=== PATIENT | female | born 1945 | race Caucasian/White ===

== ENCOUNTER → 2016-08-07 | Outpatient (CLI) | payer OTHER ==
[~2016-08-07] MED LIST: AMARYL4 MG PO; ANAPROX DS550 MG PO; ASPIRIN325 MG PO; CYCLOBENZAPRINE10 MG PO; HYDROCODONE BIT1 T11 PO; HYZAAR 25 MG-101 TAB PO; JANUMET 1000 MG1 TAB PO; LANOXIN0.25 MG PO; LEVEMIR100 U/ML SC; LIPITOR10 MG PO; NAPROSYN500 MG PO; NOVOLIN R100 U/ML SC; OYSTER CAL 500500 MG PO; TOPROL XL25 MG PO; VICODIN1 TAB PO; VITAMIN D50000 IU PO; ZOLOFT50 MG PO
== END | disposition home or self-care (01) ==
LOC: CARD 15:38
DX: R06.09 Other forms of dyspnea (principal)

== ENCOUNTER → 2016-09-01 | Outpatient (CLI) | payer OTHER | END | disposition home or self-care (01) | LOC: MAMMO 11:16 | DX: Z12.31 Encounter for screening mammogram for malignant neoplasm of breast (principal) ==

== ENCOUNTER → 2016-10-17 | Outpatient (CLI) | payer OTHER | END | disposition home or self-care (01) | LOC: RAD 12:45 | DX: M19.032 Primary osteoarthritis, left wrist (principal); M54.41 Lumbago with sciatica, right side; M47.896 Other spondylosis, lumbar region; M41.86 Other forms of scoliosis, lumbar region; Z91.81 History of falling ==

== ENCOUNTER 2018-02-14 19:30 | Emergency (ER) | payer OTHER ==
[~2018-02-14] VITALS: Ht 170.1 cm; Wt 102.1 kg
[2018-02-14 19:31] VITALS: BP 149/62
== END 2018-02-14 22:50 | disposition home or self-care (01) ==
LOC: ED 19:30
DX: S20.211A Contusion of right front wall of thorax, initial encounter (principal); S50.01XA Contusion of right elbow, initial encounter; Z79.899 Other long term (current) drug therapy; Z79.82 Long term (current) use of aspirin; W01.198A Fall on same level from slipping, tripping and stumbling with subsequent striking against other object, initial encounter; Y93.89 Activity, other specified; Y92.89 Other specified places as the place of occurrence of the external cause; Y99.8 Other external cause status

== ENCOUNTER → 2018-07-15 | Outpatient (CLI) | payer OTHER | END | disposition home or self-care (01) | LOC: RESCLI 01:30 | DX: I11.0 Hypertensive heart disease with heart failure (principal); I50.9 Heart failure, unspecified; E78.5 Hyperlipidemia, unspecified; E11.40 Type 2 diabetes mellitus with diabetic neuropathy, unspecified; F32.9 Major depressive disorder, single episode, unspecified; E78.1 Pure hyperglyceridemia; M54.31 Sciatica, right side; F41.9 Anxiety disorder, unspecified; F51.01 Primary insomnia; E11.42 Type 2 diabetes mellitus with diabetic polyneuropathy; E55.9 Vitamin D deficiency, unspecified; M19.90 Unspecified osteoarthritis, unspecified site; Z79.899 Other long term (current) drug therapy; Z88.8 Allergy status to other drugs, medicaments and biological substances; Z79.4 Long term (current) use of insulin; Z86.2 Personal history of diseases of the blood and blood-forming organs and certain disorders involving the immune mechanism; Z90.710 Acquired absence of both cervix and uterus ==

== ENCOUNTER 2018-11-04 14:46 | Emergency (ER) | payer OTHER ==
[~2018-11-04] VITALS: Ht 167.6 cm; Wt 99.8 kg
[2018-11-04 14:50] VITALS: BP 139/54
== END 2018-11-04 16:22 | disposition home or self-care (01) ==
LOC: ED 14:46
DX: R60.0 Localized edema (principal); Z90.710 Acquired absence of both cervix and uterus; Z98.890 Other specified postprocedural states; Z79.82 Long term (current) use of aspirin; Z79.4 Long term (current) use of insulin; Z79.899 Other long term (current) drug therapy

== ENCOUNTER → 2018-11-18 | Outpatient (CLI) | payer OTHER | END | disposition home or self-care (01) | LOC: RESCLI 01:10 | DX: R60.0 Localized edema (principal); I11.0 Hypertensive heart disease with heart failure; I50.9 Heart failure, unspecified; Z79.899 Other long term (current) drug therapy ==

== ENCOUNTER → 2018-12-09 | Outpatient (CLI) | payer OTHER | END | disposition home or self-care (01) | LOC: RESCLI 00:53 | DX: F32.9 Major depressive disorder, single episode, unspecified (principal); I10 Essential (primary) hypertension; E11.42 Type 2 diabetes mellitus with diabetic polyneuropathy; F41.9 Anxiety disorder, unspecified; E55.9 Vitamin D deficiency, unspecified; M54.31 Sciatica, right side; R60.0 Localized edema; E78.5 Hyperlipidemia, unspecified; E11.65 Type 2 diabetes mellitus with hyperglycemia; Z79.899 Other long term (current) drug therapy ==

== ENCOUNTER → 2019-02-19 | Outpatient (CLI) | payer OTHER ==
[~2019-02-19] MED LIST changes: +COLACE100 MG PO; +CRESTOR20 M1 PO; +DIGOXIN125 MCG PO; +GLUCOTROL10 MG PO; +HYDROXYZINE HCL25 MG PO; -LANOXIN0.25 MG PO; +LEXAPRO20 MG PO; +NEURONTIN600 MG PO; +NORCO 7.5-3251 EACH PO; +VICTOZA 3-PAK6 MG/ML SC; +VITAMIN B-121000 MC2 PO; +VITAMIN D32000 UNI1 PO; -VITAMIN D50000 IU PO
[2019-02-19 11:56] LABS: CREATININE 1.92 mg/dL (0.55-1.02); POTASSIUM 3.2 mmol/L (3.5-5.1)
== END | disposition home or self-care (01) ==
LOC: LAB 11:20
PROVIDERS: Internal Medicine Endocrinology, Diabetes & Metabolism
DX: N17.9 Acute kidney failure, unspecified (principal)

== ENCOUNTER 2019-02-21 12:36 | Inpatient (IN) | payer OTHER ==
[~2019-02-21] VITALS: Ht 167.6 cm; Wt 94.4 kg
[~2019-02-21 12:36] MED LIST changes: -COLACE100 MG PO; -CRESTOR20 M1 PO; -GLUCOTROL10 MG PO; -HYDROXYZINE HCL25 MG PO; -LEXAPRO20 MG PO; -NEURONTIN600 MG PO; -NORCO 7.5-3251 EACH PO; -VICTOZA 3-PAK6 MG/ML SC; -VITAMIN B-121000 MC2 PO
[2019-02-21 12:37] VITALS: BP 108/53
[2019-02-21 13:39] LABS: BASO # 0.1 10*3/uL (0.0-0.1); BASO % 0.6 % (0.0-1.0); EOS # 0.2 10*3/uL (0.0-0.4); EOS % 2.3 % (1.0-4.0); HEMOGLOBIN 12.3 g/dl (12.0-16.0); LYMPH # 1.8 10*3/uL (1.3-4.4); LYMPH % 21.5 % (27.0-41.0); MEAN CELL VOLUME 88.5 fl (81.0-99.0); MEAN CORPUSCULAR HGB 29.4 pg (27.0-31.0); MEAN CORPUSCULAR HGB CONC 33.2 g/dl (33.0-37.0); MEAN PLATELET VOLUME 9.9 fl (9.6-12.3); MONO # 0.7 10*3/uL (0.1-1.0); MONO % 8.4 % (3.0-9.0); NEUT # 5.5 10*3/uL (2.3-7.9); NEUT % 66.7 % (47.0-73.0); PLATELET COUNT AUTOMATED 262 10*3/uL (130-400); RED BLOOD COUNT 4.18 10*6/uL (4.10-5.10); RED CELL DISTRI WIDTH 11.9 % (0-14.5); WHITE BLOOD COUNT 8.2 10*3/uL (4.8-10.8)
[2019-02-21 13:56] LABS: ALBUMIN 3.8 gm/dl (3.1-4.5); ALKALINE PHOSPHATASE 43 U/L (45-117); BUN 39 mg/dl (7-24); CHLORIDE 87 mmol/L (98-107); CREATININE 1.85 mg/dL (0.55-1.02); POTASSIUM 3.2 mmol/L (3.5-5.1); SGOT/AST 20 IU/L (3-35); SGPT/ALT 24 U/L (12-78); SODIUM 130 mmol/L (136-145); TOTAL PROTEIN 7.1 gm/dL (6.4-8.2)
[2019-02-21 13:58] LABS: TROPONIN I < 0.015 ng/ml (<0.045)
[2019-02-21 14:35] LABS: BILIRUBIN NEGATIVE (NEGATIVE); BLOOD NEGATIVE (NEGATIVE); CLARITY CLEAR (CLEAR); COLOR YELLOW (YELLOW); GLUCOSE 3+ (NEGATIVE); KETONE NEGATIVE (NEGATIVE); LEUKO ESTERASE 2+ (NEGATIVE); NITRITE NEGATIVE (NEGATIVE); UROBILINOGEN 0.2 E.U./dl (0.2-1.0)
[2019-02-21 14:41] LABS: EPITHELIAL CELLS 51-100
[2019-02-21 14:42] LABS: BACTERIA 1+; WBC 51-100 wbc/hpf (0-5)
[2019-02-21 15:52] VITALS: BP 97/48
[2019-02-21 16:00] VITALS: BP 118/45
--- NOTE | 2019-02-21 16:00 | NUR ---
A 74, admitted to , under the services of ТАТЬЯНА Cordova DO with a diagnosis of UTI. Chief complaint is DIZZINESS AND FORGETFUL IN LAST 2 WEEKS PER PT. Patient arrived via bed from ER. Monitor applied. Initial assessment completed. Vital signs taken and recorded. ТАТЬЯНА CORDOVA DO notified of admission to the unit. Orders received. See assessment for past medical history, medications and allergies. Patient and/or family oriented to unit. [address] visitation policy reviewed. Clothing/patient valuable form completed. TOM RO R
[2019-02-21] MEDS ORDERED: VICTOZA 3-PAK6 MG/ML SC (16:35)
[2019-02-21] MEDS ORDERED: GLUCOTROL10 MG PO (16:36)
[2019-02-21] MEDS ORDERED: NEURONTIN600 MG PO (16:36)
[2019-02-21] MEDS ORDERED: LEXAPRO20 MG PO (16:36)
[2019-02-21] MEDS ORDERED: HYDROXYZINE HCL25 MG PO (16:39)
[2019-02-21] MEDS ORDERED: NORCO 7.5-3251 EACH PO (16:40)
[2019-02-21] MEDS ORDERED: CRESTOR20 M1 PO (16:40)
[2019-02-21] MEDS ORDERED: VITAMIN B-121000 MC2 PO (16:41)
[2019-02-21] MEDS ORDERED: COLACE100 MG PO (16:41)
--- NOTE | 2019-02-21 16:58 | NUR ---
DR. CHAVEZ CALLED AWARE PT MEDICATIONS ARE VERIFIED AND NEED ORDERED.
--- NOTE | 2019-02-21 17:20 | NUR ---
DR. SOSA CALLED AWARE OF CONSULT.
--- NOTE | 2019-02-21 17:22 | NUR ---
CALLED DR. SOSA OFFICE THEY WILL PAGE HIM FOR CONSULT.
--- NOTE | 2019-02-21 18:00 | NUR ---
TOLERATED ROUTINE MED WITH NO PROBLEM. VISITORS AT HER SIDE. CALL LIGHT IN REACH.
[2019-02-21 20:00] VITALS: BP 114/50
--- NOTE | 2019-02-21 22:11 | NUR ---
BSG 107. PT STATES SHE TAKES THIS EVERY NIGHT, EVEN WHEN BSG IS AROUND 107. STATES SHE SHOULD BE ABLE TO HANDLE THIS AMOUNT WITHOUT ISSUE. RN EDUCATED ON S/S OF HYPOGLYCEMIA AND INSTRUCTED PT TO NOTIFY RN IF ANY NEW/WORSENING SYMPTOMS PRESENT. PT VERBALIZES UNDERSTANDING.
--- NOTE | 2019-02-21 22:47 | NUR ---
PO DULCOLAX ADMINISTERED PER PRN ORDER FOR C/O CONSTIPATION. PT CLAIMS LAST BM 02/19/19. HYPO BSX4 QUADS AUSCULTATED. DENIES TENDERNESS/PAIN W/ TOUCH. WILL MONITOR. CALL LIGHT IN REACH. BED ALARM INTACT.
[2019-02-22] VITALS: BP 108/44
[2019-02-22 06:31] LABS: BASO # 0.1 10*3/uL (0.0-0.1); BASO % 0.8 % (0.0-1.0); EOS # 0.3 10*3/uL (0.0-0.4); EOS % 5.4 % (1.0-4.0); HEMATOCRIT 33.5 % (37.0-47.0); HEMOGLOBIN 11.2 g/dl (12.0-16.0); LYMPH # 1.8 10*3/uL (1.3-4.4); LYMPH % 29.5 % (27.0-41.0); MEAN CELL VOLUME 86.8 fl (81.0-99.0); MEAN CORPUSCULAR HGB CONC 33.4 g/dl (33.0-37.0); MONO # 0.5 10*3/uL (0.1-1.0); MONO % 8.8 % (3.0-9.0); NEUT # 3.4 10*3/uL (2.3-7.9); NEUT % 55.2 % (47.0-73.0); PLATELET COUNT AUTOMATED 237 10*3/uL (130-400); RED BLOOD COUNT 3.86 10*6/uL (4.10-5.10); RED CELL DISTRI WIDTH 11.9 % (0-14.5); WHITE BLOOD COUNT 6.1 10*3/uL (4.8-10.8)
[2019-02-22 06:51] LABS: CREATININE 1.35 mg/dL (0.55-1.02); PHOSPHOROUS 3.1 mg/dL (2.5-4.9); POTASSIUM 2.7 mmol/L (3.5-5.1)
[2019-02-22 07:07] LABS: FREE T4 1.06 ng/dl (0.76-1.46); THYROID STIM HORMONE (HS) 1.73 uIU/ml (0.358-4.75)
[2019-02-22 07:24] LABS: ACT PARTIAL THROMBO TIME 24.4 SECONDS (20.0-32.1)
--- NOTE | 2019-02-22 07:34 | NUR ---
Nursing screen and Occupational Therapy referral received. Thank you. Trinh Gill OTR/l
[2019-02-22 07:49] LABS: VITAMIN D, 25-HYDROXY 62.5 ng/mL (30-100)
--- NOTE | 2019-02-22 08:04 | NUR ---
PHYSICAL THERAPY Screen received as well as orders for Physical Therapy will follow thank you Kaela Walker PT
--- NOTE | 2019-02-22 08:15 | NUR ---
PT RESTING IN BED. RESP-EASY AND REGULAR. ORTHOSTATIC BP DONE ON PT ASYMPTOMATIC. +ORTHO. IVF INFUSING WITH NO PROBLEM. CALL LIGHT IN REACH TOLERATED ROUTINE MED WITH NO PROBLEM. SEE SHIFT ASSESSMENT.
--- NOTE | 2019-02-22 09:00 | NUR ---
[employer] Specialist in to talk to patient. Patient states lives at home with . There are few steps in the home. Physician: [facility] Home health services: none Patient's level of ADLs: INDEPENDENT Patient has working utilities: all working DME: cane Follow-up physician's appointment after d/c: will be made by hospitalist nurse director upon discharge Does patient want to access PORTAL?: no Discharge plan discussed with patient, she states she lives at home with her , is independent in adls and ambulation with her cane, discussed with having falls and possibly going to a short term correction for 5 days of rehab prior to returning home, she declined, stated she would be returning home and has a lot of family to help her if needed. also discussed VNA and she stated didn't think she needed this either but would think about it, case management will follow. VALERIE HOWELL
--- NOTE | 2019-02-22 11:52 | NUR ---
CALLED DR. BLACK MADE AWARE ORTHOSTATIC BP +. PT WAS ASYMPTOMATIC.
[2019-02-22 12:00] VITALS: BP 96/56
--- NOTE | 2019-02-22 12:00 | NUR ---
PT ASSISTED TO BATHROOM AND BACK TO BED WITH VISITOR AT HER SIDE. RESP-EASY AND REGULAR. BSG-104, SEE EMAR. CALL LIGHT IN REACH.
[2019-02-22 16:00] VITALS: BP 133/90
--- NOTE | 2019-02-22 18:30 | NUR ---
TOLERATED ROUTINE MED WITHNO PROBLEM. VISITOR AT HER SIDE. CALL LIGHT IN REACH.
[2019-02-22 20:00] VITALS: BP 115/42
--- NOTE | 2019-02-22 20:00 | NUR ---
RESTING IN BED. NO C/O AT THIS TIME. CALL LIGHT IN REACH. SEE SHIFT ASSESSMENT.
--- NOTE | 2019-02-22 21:30 | NUR ---
TOLERATED ROUTINE MED WITH NO PROBLEM. BSG-121, SEE EMAR. CALL LIGHT IN REACH.
--- NOTE | 2019-02-23 00:12 | NUR ---
ASSUMED CARE OF PT. PT ASLEEP IN BED, EASILY AROUSABLE. IVF INFUSING PER ORDER. PT DENIE ANY NEEDS AT PRESENT TIME. WILL MONITOR. CALL LIGHT IN REACH. SEE SHIFT ASSESSMENT DOCUMENTATION.
--- NOTE | 2019-02-23 05:07 | NUR ---
PT HAD EPISODE OF INCONTINENCE. PT ASSISTED TO CLEAN UP/CHANGE PAJAMAS. PT PULLED IV OUT OF PLACE WHILE CHANGING. IV TO L WRIST DISCONTINUED & DSD APPLIED. NEW 24 GAUGE IV SITE INITIATED IN L FOREARM PER POLICY. PT TOLERATED WELL. IVF RECONNECTED AND RUNNING AT 80 ML/HR PER ORDER. WILL MONITOR. BED LEFT LOCKED IN LOW POSITION, BED ALARM INTACT, CALL LIGHT IN REACH.
[2019-02-23 07:20] VITALS: BP 122/58
--- NOTE | 2019-02-23 07:20 | NUR ---
ASSESSMENT COMPLETED AND DOCUMENTED. NO SIGNS OF DYSURIA. RESTING PEACEFULLY IN BED READING A MAG[employer]. WILL CONTINUE TO MONITOR. JUANCARLOS HOLLAND
[2019-02-23 07:51] LABS: CREATININE 1.13 mg/dL (0.55-1.02); PHOSPHOROUS 2.4 mg/dL (2.5-4.9); POTASSIUM 3.3 mmol/L (3.5-5.1)
[2019-02-23 08:12] LABS: BASO % 0.5 % (0.0-1.0); EOS # 0.4 10*3/uL (0.0-0.4); EOS % 7.2 % (1.0-4.0); HEMOGLOBIN 10.9 g/dl (12.0-16.0); LYMPH # 1.8 10*3/uL (1.3-4.4); LYMPH % 31.6 % (27.0-41.0); MEAN CELL VOLUME 88.8 fl (81.0-99.0); MEAN CORPUSCULAR HGB 28.5 pg (27.0-31.0); MEAN CORPUSCULAR HGB CONC 32.1 g/dl (33.0-37.0); MONO # 0.5 10*3/uL (0.1-1.0); MONO % 9.4 % (3.0-9.0); NEUT # 2.8 10*3/uL (2.3-7.9); NEUT % 50.9 % (47.0-73.0); PLATELET COUNT AUTOMATED 254 10*3/uL (130-400); RED BLOOD COUNT 3.83 10*6/uL (4.10-5.10); RED CELL DISTRI WIDTH 12.2 % (0-14.5); WHITE BLOOD COUNT 5.5 10*3/uL (4.8-10.8)
--- NOTE | 2019-02-23 08:51 | NUR ---
PATIENT RESTING QUIETLY IN BED. NO DISTRESS NOTED. RESPIRATIONS EASY, REGULAR ON RA. IVF MAINTAINED PER ORDER. WILL CONTINUE TO MONITOR. NO VOICED COMPLAINTS. CALL LIGHT WITHIN REACH.
--- NOTE | 2019-02-23 09:00 | NUR ---
case management visits with patient, again discussed with her discharge plans, she stated she would be discharged to home today, discussed with her VNA and she was receptive to [facility], nursing only, case management will notify [facility] that patient is discharged to home today
--- NOTE | 2019-02-23 09:45 | NUR ---
PT. DENIES ANY DYSURIA. RESTING PEACFULLY IN BED WATCHING [employer], VERY PLEASENT & VERY COORPERATIVE. NO COMPLAINTS AT THIS TIME. WILL CONTINUE TO MONITOR. JUANCARLOS HOLLAND
--- NOTE | 2019-02-23 12:37 | NUR ---
case management notified Lexy at [facility] that patient is being discharged to home today
[2019-02-23 12:40] VITALS: BP 110/62
--- NOTE | 2019-02-23 13:06 | NUR ---
PT. VISITING WITH WATCHING T.V PEACEFULLY. NO VOICE COMPLAINTS AT THIS TIME. REPORT GIVEN TO JENNA. JUANCARLOS JAVIER DUANECC
[2019-02-23 16:00] VITALS: BP 109/56
[2019-02-23 20:00] VITALS: BP 113/48
[2019-02-24] VITALS: BP 111/48
--- NOTE | 2019-02-24 02:41 | NUR ---
PT ASLEEP IN BED. RESPIRATIONS EASY. NO S/S OF DISTRESS NOTED. WILL MONITOR. CALL LIGHT IN REACH. BED ALARM INTACT. IVF INFUSING PER ORDER.
[2019-02-24 06:50] LABS: CREATININE 1.08 mg/dL (0.55-1.02); POTASSIUM 3.7 mmol/L (3.5-5.1)
[2019-02-24 08:00] VITALS: BP 104/45
--- NOTE | 2019-02-24 08:08 | NUR ---
PHYSICAL THERAPY Physical therapy evaluation completed, 4E. Full details to follow. Patient presents as low complexity after evaluation and chart review, [id number]. Patient is independent with ambulation, transfers using personal std cane and will have lots of family support upon discharge home. Pt has no concerns for returning home. Pt to discharge home without any further therapy needs at this time. Thank you for your referral. Lina Thompson, PT, DPT
--- NOTE | 2019-02-24 08:45 | NUR ---
Occupational Therapy evaluation completed on 4 with full eval to follow. Precautions include IV UE, monitor,fall risk d/t 20 sec 5 times sit to stand with normal rate <12 sec, low complexity level [id number] via chart review, testing and evalaution. Recommend home w/ at plof. No further OT indicated at this time. Patient in agreement with this plan. Thank you. Trinh Gill OTR/l
--- NOTE | 2019-02-24 09:00 | NUR ---
case management visits with patient, present, patient is hoping to be discharged to home today, will transport her, case management will notify [facility] when patient is discharged, no other needs at this time
[2019-02-24 12:00] VITALS: BP 110/56
--- NOTE | 2019-02-24 13:18 | NUR ---
Discharge instructions reviewed with patient/family. Patient receptive and verbalizes understanding. Follow-up care arranged. Written instructions given to patient/family. CJ SIMS
== END 2019-02-24 13:18 | disposition home or self-care (01) | DRG 640 ==
LOC: ED 12:36 → 4E 15:06 → EDHOLD 15:06 → 4E 15:44
PROVIDERS: Internal Medicine; Nurse Practitioner Family; ADMIT Internal Medicine
DX: E86.0 Dehydration (principal); N17.0 Acute kidney failure with tubular necrosis; N39.0 Urinary tract infection, site not specified; I13.0 Hypertensive heart and chronic kidney disease with heart failure and stage 1 through stage 4 chronic kidney disease, or unspecified chronic kidney disease; E87.6 Hypokalemia; R26.2 Difficulty in walking, not elsewhere classified; I50.9 Heart failure, unspecified; R94.31 Abnormal electrocardiogram [ECG] [EKG]; E87.1 Hypo-osmolality and hyponatremia; E78.5 Hyperlipidemia, unspecified; E11.65 Type 2 diabetes mellitus with hyperglycemia; R00.1 Bradycardia, unspecified; I08.3 Combined rheumatic disorders of mitral, aortic and tricuspid valves; F32.9 Major depressive disorder, single episode, unspecified; N18.9 Chronic kidney disease, unspecified; E11.22 Type 2 diabetes mellitus with diabetic chronic kidney disease; F41.9 Anxiety disorder, unspecified; E87.8 Other disorders of electrolyte and fluid balance, not elsewhere classified; Z79.4 Long term (current) use of insulin; Z98.42 Cataract extraction status, left eye; Z98.41 Cataract extraction status, right eye; Z90.710 Acquired absence of both cervix and uterus; Z80.8 Family history of malignant neoplasm of other organs or systems; Z82.0 Family history of epilepsy and other diseases of the nervous system; Z82.49 Family history of ischemic heart disease and other diseases of the circulatory system; Z79.82 Long term (current) use of aspirin; Z79.899 Other long term (current) drug therapy

== ENCOUNTER → 2019-03-22 | Outpatient (CLI) | payer OTHER ==
[~2019-03-22] MED LIST changes: +COLACE100 MG PO; +CRESTOR20 M1 PO; +GLUCOTROL10 MG PO; +HYDROXYZINE HCL25 MG PO; +LEXAPRO20 MG PO; +NEURONTIN600 MG PO; +NORCO 7.5-3251 EACH PO; +VICTOZA 3-PAK6 MG/ML SC; +VITAMIN B-121000 MC2 PO
== END | disposition home or self-care (01) ==
LOC: RESCLI 09:00
DX: I13.0 Hypertensive heart and chronic kidney disease with heart failure and stage 1 through stage 4 chronic kidney disease, or unspecified chronic kidney disease (principal); E11.22 Type 2 diabetes mellitus with diabetic chronic kidney disease; E11.21 Type 2 diabetes mellitus with diabetic nephropathy; E11.42 Type 2 diabetes mellitus with diabetic polyneuropathy; N18.3 Chronic kidney disease, stage 3 (moderate); I50.9 Heart failure, unspecified; F32.9 Major depressive disorder, single episode, unspecified; E78.5 Hyperlipidemia, unspecified; E78.1 Pure hyperglyceridemia; M54.31 Sciatica, right side; F41.9 Anxiety disorder, unspecified; F51.01 Primary insomnia; E55.9 Vitamin D deficiency, unspecified; E78.2 Mixed hyperlipidemia; K59.00 Constipation, unspecified; E21.3 Hyperparathyroidism, unspecified; G89.29 Other chronic pain; R60.0 Localized edema; Z79.4 Long term (current) use of insulin; Z79.899 Other long term (current) drug therapy; Z90.710 Acquired absence of both cervix and uterus

== ENCOUNTER → 2019-03-31 | Outpatient (CLI) | payer OTHER ==
[2019-03-31 14:11] LABS: ALBUMIN 3.3 gm/dl (3.1-4.5); CREATININE 1.16 mg/dL (0.55-1.02); PHOSPHOROUS 3.4 mg/dL (2.5-4.9); POTASSIUM 3.9 mmol/L (3.5-5.1)
== END | disposition home or self-care (01) ==
LOC: RESCLI 01:26 → LAB 01:26 → RESCLI 18:37
PROVIDERS: Internal Medicine
DX: I10 Essential (primary) hypertension (principal); E78.5 Hyperlipidemia, unspecified; G89.29 Other chronic pain; K59.00 Constipation, unspecified; E11.65 Type 2 diabetes mellitus with hyperglycemia; F41.9 Anxiety disorder, unspecified; E11.42 Type 2 diabetes mellitus with diabetic polyneuropathy; E55.9 Vitamin D deficiency, unspecified; F32.9 Major depressive disorder, single episode, unspecified; E11.21 Type 2 diabetes mellitus with diabetic nephropathy; R60.0 Localized edema; Z79.899 Other long term (current) drug therapy; Z90.710 Acquired absence of both cervix and uterus

== ENCOUNTER → 2019-04-28 | Outpatient (CLI) | payer OTHER | END | disposition home or self-care (01) | LOC: RESCLI 00:18 | DX: I13.0 Hypertensive heart and chronic kidney disease with heart failure and stage 1 through stage 4 chronic kidney disease, or unspecified chronic kidney disease (principal); E11.42 Type 2 diabetes mellitus with diabetic polyneuropathy; E11.21 Type 2 diabetes mellitus with diabetic nephropathy; E11.65 Type 2 diabetes mellitus with hyperglycemia; N18.3 Chronic kidney disease, stage 3 (moderate); I50.9 Heart failure, unspecified; E78.5 Hyperlipidemia, unspecified; F32.9 Major depressive disorder, single episode, unspecified; E78.1 Pure hyperglyceridemia; M54.31 Sciatica, right side; F41.9 Anxiety disorder, unspecified; F51.01 Primary insomnia; E55.9 Vitamin D deficiency, unspecified; E78.2 Mixed hyperlipidemia; K59.00 Constipation, unspecified; E21.3 Hyperparathyroidism, unspecified; G89.29 Other chronic pain; R60.0 Localized edema; Z79.4 Long term (current) use of insulin; Z90.710 Acquired absence of both cervix and uterus ==

== ENCOUNTER → 2019-09-14 | Outpatient (CLI) | payer OTHER | END | disposition home or self-care (01) | LOC: RESCLI 10:56 | DX: I13.0 Hypertensive heart and chronic kidney disease with heart failure and stage 1 through stage 4 chronic kidney disease, or unspecified chronic kidney disease (principal); E11.22 Type 2 diabetes mellitus with diabetic chronic kidney disease; N18.3 Chronic kidney disease, stage 3 (moderate); I50.9 Heart failure, unspecified; E78.1 Pure hyperglyceridemia; M54.31 Sciatica, right side; F41.9 Anxiety disorder, unspecified; F51.01 Primary insomnia; E11.42 Type 2 diabetes mellitus with diabetic polyneuropathy; E55.9 Vitamin D deficiency, unspecified; R60.0 Localized edema; E78.2 Mixed hyperlipidemia; E11.65 Type 2 diabetes mellitus with hyperglycemia; K59.00 Constipation, unspecified; E21.3 Hyperparathyroidism, unspecified; G89.29 Other chronic pain; J30.2 Other seasonal allergic rhinitis; Z79.4 Long term (current) use of insulin; Z79.899 Other long term (current) drug therapy; Z98.890 Other specified postprocedural states; Z90.710 Acquired absence of both cervix and uterus ==

== ENCOUNTER → 2019-10-11 | Outpatient (CLI) | payer OTHER | END | disposition home or self-care (01) | LOC: RESCLI 02:35 | DX: I13.0 Hypertensive heart and chronic kidney disease with heart failure and stage 1 through stage 4 chronic kidney disease, or unspecified chronic kidney disease (principal); E11.22 Type 2 diabetes mellitus with diabetic chronic kidney disease; I50.9 Heart failure, unspecified; N18.3 Chronic kidney disease, stage 3 (moderate); E78.5 Hyperlipidemia, unspecified; M54.31 Sciatica, right side; F41.9 Anxiety disorder, unspecified; F51.01 Primary insomnia; E55.9 Vitamin D deficiency, unspecified; K59.00 Constipation, unspecified; E21.3 Hyperparathyroidism, unspecified; G89.29 Other chronic pain; J30.2 Other seasonal allergic rhinitis; E53.8 Deficiency of other specified B group vitamins; I25.10 Atherosclerotic heart disease of native coronary artery without angina pectoris; Z79.4 Long term (current) use of insulin; Z79.899 Other long term (current) drug therapy; Z79.82 Long term (current) use of aspirin; Z90.710 Acquired absence of both cervix and uterus; Z98.890 Other specified postprocedural states ==

== ENCOUNTER → 2020-02-08 | Outpatient (CLI) | payer OTHER | END | disposition home or self-care (01) | LOC: ORTHO 09:09 | PROVIDERS: ATTEND Orthopaedic Surgery | DX: M25.511 Pain in right shoulder (principal) ==

== ENCOUNTER → 2020-02-27 | Outpatient (CLI) | payer OTHER | END | disposition home or self-care (01) | LOC: RESCLI 07:07 | PROVIDERS: ATTEND Internal Medicine Nephrology | DX: I13.0 Hypertensive heart and chronic kidney disease with heart failure and stage 1 through stage 4 chronic kidney disease, or unspecified chronic kidney disease (principal); I50.9 Heart failure, unspecified; N18.30 Chronic kidney disease, stage 3 unspecified; E78.5 Hyperlipidemia, unspecified; E11.9 Type 2 diabetes mellitus without complications; M54.31 Sciatica, right side; F41.9 Anxiety disorder, unspecified; F51.01 Primary insomnia; E11.42 Type 2 diabetes mellitus with diabetic polyneuropathy; E55.9 Vitamin D deficiency, unspecified; K59.00 Constipation, unspecified; E21.3 Hyperparathyroidism, unspecified; G89.29 Other chronic pain; I25.10 Atherosclerotic heart disease of native coronary artery without angina pectoris; J30.2 Other seasonal allergic rhinitis; Z79.4 Long term (current) use of insulin; Z23 Encounter for immunization; Z79.899 Other long term (current) drug therapy; Z98.890 Other specified postprocedural states ==

== ENCOUNTER → 2020-03-21 | Outpatient (CLI) | payer OTHER | END | disposition home or self-care (01) | LOC: COVID19 13:43 | PROVIDERS: ATTEND Internal Medicine | DX: Z20.828 Contact with and (suspected) exposure to other viral communicable diseases (principal) ==

== ENCOUNTER → 2020-06-12 | Outpatient (CLI) | payer OTHER | END | disposition home or self-care (01) | LOC: RESCLI 00:15 | PROVIDERS: ATTEND Internal Medicine | DX: I13.0 Hypertensive heart and chronic kidney disease with heart failure and stage 1 through stage 4 chronic kidney disease, or unspecified chronic kidney disease (principal); E11.22 Type 2 diabetes mellitus with diabetic chronic kidney disease; I50.9 Heart failure, unspecified; N18.30 Chronic kidney disease, stage 3 unspecified; E78.5 Hyperlipidemia, unspecified; M54.31 Sciatica, right side; F41.9 Anxiety disorder, unspecified; F51.01 Primary insomnia; E11.42 Type 2 diabetes mellitus with diabetic polyneuropathy; E55.9 Vitamin D deficiency, unspecified; K59.00 Constipation, unspecified; G89.29 Other chronic pain; J30.2 Other seasonal allergic rhinitis; I25.10 Atherosclerotic heart disease of native coronary artery without angina pectoris; F33.9 Major depressive disorder, recurrent, unspecified; Z79.4 Long term (current) use of insulin; Z13.820 Encounter for screening for osteoporosis; Z79.82 Long term (current) use of aspirin; Z98.890 Other specified postprocedural states; Z90.710 Acquired absence of both cervix and uterus ==

== ENCOUNTER → 2020-08-23 | Outpatient (CLI) | payer OTHER ==
[2020-08-23 11:09] LABS: BASO % 0.6 % (0.0-1.0); EOS # 0.4 10*3/uL (0.0-0.4); EOS % 5.4 % (1.0-4.0); HEMATOCRIT 38.5 % (37.0-47.0); LYMPH # 1.4 10*3/uL (1.3-4.4); LYMPH % 22.4 % (27.0-41.0); MEAN CELL VOLUME 96.5 fl (81.0-99.0); MEAN CORPUSCULAR HGB 29.6 pg (27.0-31.0); MEAN CORPUSCULAR HGB CONC 30.6 g/dl (33.0-37.0); MEAN PLATELET VOLUME 9.6 fl (9.6-12.3); MONO # 0.4 10*3/uL (0.1-1.0); MONO % 6.5 % (3.0-9.0); NEUT # 4.2 10*3/uL (2.3-7.9); NEUT % 64.6 % (47.0-73.0); PLATELET COUNT AUTOMATED 263 10*3/uL (130-400); RED BLOOD COUNT 3.99 10*6/uL (4.10-5.10); RED CELL DISTRI WIDTH 13.9 % (0-14.5); WHITE BLOOD COUNT 6.4 10*3/uL (4.8-10.8)
== END | disposition home or self-care (01) ==
LOC: RESCLI 06:27
PROVIDERS: Hospitalist; ATTEND Internal Medicine
DX: I13.0 Hypertensive heart and chronic kidney disease with heart failure and stage 1 through stage 4 chronic kidney disease, or unspecified chronic kidney disease (principal); F32.9 Major depressive disorder, single episode, unspecified; E78.5 Hyperlipidemia, unspecified; E11.9 Type 2 diabetes mellitus without complications; M54.31 Sciatica, right side; F41.9 Anxiety disorder, unspecified; I50.9 Heart failure, unspecified; F51.01 Primary insomnia; E11.42 Type 2 diabetes mellitus with diabetic polyneuropathy; R60.0 Localized edema; E55.9 Vitamin D deficiency, unspecified; K59.00 Constipation, unspecified; N18.30 Chronic kidney disease, stage 3 unspecified; J30.2 Other seasonal allergic rhinitis; I25.10 Atherosclerotic heart disease of native coronary artery without angina pectoris; E66.9 Obesity, unspecified; M85.852 Other specified disorders of bone density and structure, left thigh; Z79.4 Long term (current) use of insulin; Z79.82 Long term (current) use of aspirin; Z79.899 Other long term (current) drug therapy; Z90.710 Acquired absence of both cervix and uterus; Z98.890 Other specified postprocedural states

== ENCOUNTER 2020-09-14 11:59 | Emergency (ER) | payer OTHER ==
[~2020-09-14] VITALS: Ht 170.1 cm; Wt 112.5 kg
[2020-09-14 12:15] VITALS: BP 156/69
[2020-09-14 12:52] LABS: HEMATOCRIT 35.1 % (37.0-47.0); MEAN CELL VOLUME 91.6 fl (81.0-99.0); MEAN CORPUSCULAR HGB 29.5 pg (27.0-31.0); MEAN CORPUSCULAR HGB CONC 32.2 g/dl (33.0-37.0); MEAN PLATELET VOLUME 9.7 fl (9.6-12.3); PLATELET COUNT AUTOMATED 261 10*3/uL (130-400); RED BLOOD COUNT 3.83 10*6/uL (4.10-5.10); RED CELL DISTRI WIDTH 14.1 % (0-14.5); WHITE BLOOD COUNT 6.2 10*3/uL (4.8-10.8)
[2020-09-14 13:09] LABS: ALBUMIN 3.2 gm/dl (3.1-4.5); ALKALINE PHOSPHATASE 79 U/L (45-117); BUN 8 mg/dl (7-24); CHLORIDE 111 mmol/L (98-107); CREATININE 0.72 mg/dL (0.55-1.02); LIPASE 134 U/L (73-393); POTASSIUM 3.7 mmol/L (3.5-5.1); SGOT/AST 32 IU/L (3-35); SGPT/ALT 36 U/L (12-78); SODIUM 143 mmol/L (136-145); TOTAL PROTEIN 6.9 gm/dL (6.4-8.2)
[2020-09-14 13:11] LABS: ATYPICAL LYMPHS 2 % (0-0); TOTAL CELLS COUNTED 100 #CELLS; TROPONIN I < 0.015 ng/ml (<0.045)
[2020-09-14 13:12] LABS: PLATELET SUFFICIENCY NORMAL (NORMAL)
[2020-09-14 13:57] LABS: BILIRUBIN Negative (Negative); BLOOD Negative (Negative); CLARITY Clear (Clear); COLOR Yellow (Yellow); GLUCOSE Negative (Negative); KETONE Negative (Negative); LEUKO ESTERASE 1+ (Negative); NITRITE Negative (Negative); PH 7.5 (4.5-8.0); SPECIFIC GRAVITY <= 1.005 (1.001-1.030); UROBILINOGEN 0.2 E.U./dl (0.0-1.0)
== END 2020-09-14 14:33 | disposition home or self-care (01) ==
LOC: ED 11:59
PROVIDERS: Physician Assistant
DX: K52.9 Noninfective gastroenteritis and colitis, unspecified (principal); Z79.899 Other long term (current) drug therapy; Z79.4 Long term (current) use of insulin; Z98.890 Other specified postprocedural states; Z90.711 Acquired absence of uterus with remaining cervical stump

== ENCOUNTER → 2020-10-23 | Outpatient (CLI) | payer OTHER | END | disposition home or self-care (01) | LOC: RESCLI 01:06 | PROVIDERS: ATTEND Student in an Organized Health Care Education/Training Program | DX: I13.0 Hypertensive heart and chronic kidney disease with heart failure and stage 1 through stage 4 chronic kidney disease, or unspecified chronic kidney disease (principal); F32.9 Major depressive disorder, single episode, unspecified; E78.5 Hyperlipidemia, unspecified; M54.31 Sciatica, right side; F41.9 Anxiety disorder, unspecified; I50.9 Heart failure, unspecified; E11.22 Type 2 diabetes mellitus with diabetic chronic kidney disease; E11.42 Type 2 diabetes mellitus with diabetic polyneuropathy; R60.0 Localized edema; E78.2 Mixed hyperlipidemia; K59.00 Constipation, unspecified; J30.2 Other seasonal allergic rhinitis; M85.859 Other specified disorders of bone density and structure, unspecified thigh; E55.9 Vitamin D deficiency, unspecified; Z79.84 Long term (current) use of oral hypoglycemic drugs; Z79.899 Other long term (current) drug therapy; Z90.710 Acquired absence of both cervix and uterus ==

== ENCOUNTER → 2021-01-29 | Outpatient (CLI) | payer OTHER | END | disposition home or self-care (01) | LOC: RESCLI 01:22 | PROVIDERS: ATTEND Internal Medicine | DX: I25.10 Atherosclerotic heart disease of native coronary artery without angina pectoris (principal); F32.9 Major depressive disorder, single episode, unspecified; I11.0 Hypertensive heart disease with heart failure; I50.9 Heart failure, unspecified; E78.5 Hyperlipidemia, unspecified; E11.9 Type 2 diabetes mellitus without complications; M54.31 Sciatica, right side; F41.9 Anxiety disorder, unspecified; F51.01 Primary insomnia; E11.42 Type 2 diabetes mellitus with diabetic polyneuropathy; E55.9 Vitamin D deficiency, unspecified; K59.00 Constipation, unspecified; N18.30 Chronic kidney disease, stage 3 unspecified; J30.2 Other seasonal allergic rhinitis; Z79.82 Long term (current) use of aspirin; Z79.84 Long term (current) use of oral hypoglycemic drugs; Z90.710 Acquired absence of both cervix and uterus; Z79.4 Long term (current) use of insulin; Z79.899 Other long term (current) drug therapy; Z98.890 Other specified postprocedural states ==

== ENCOUNTER → 2021-04-30 | Outpatient (CLI) | payer OTHER | END | disposition home or self-care (01) | LOC: RESCLI 01:33 | PROVIDERS: ATTEND Student in an Organized Health Care Education/Training Program | DX: Z23 Encounter for immunization (principal); E11.9 Type 2 diabetes mellitus without complications; M54.31 Sciatica, right side; F41.9 Anxiety disorder, unspecified; I50.9 Heart failure, unspecified; F51.01 Primary insomnia; E11.42 Type 2 diabetes mellitus with diabetic polyneuropathy; E55.9 Vitamin D deficiency, unspecified; R60.0 Localized edema; K59.00 Constipation, unspecified; G89.29 Other chronic pain; J30.2 Other seasonal allergic rhinitis; E53.8 Deficiency of other specified B group vitamins; Z79.4 Long term (current) use of insulin ==

== ENCOUNTER → 2021-05-01 | Outpatient (CLI) | payer OTHER | END | disposition home or self-care (01) | LOC: ORTHO 10:31 | PROVIDERS: ATTEND Orthopaedic Surgery | DX: M85.812 Other specified disorders of bone density and structure, left shoulder (principal); I70.298 Other atherosclerosis of native arteries of extremities, other extremity; I70.0 Atherosclerosis of aorta ==

== ENCOUNTER → 2021-05-20 | Outpatient (CLI) | payer OTHER ==
[2021-05-20 12:44] LABS: ALKALINE PHOSPHATASE 56 U/L (45-117); BUN 17 mg/dl (7-24); CHLORIDE 109 mmol/L (98-107); CREATININE 0.98 mg/dL (0.55-1.02); POTASSIUM 4.3 mmol/L (3.5-5.1); SGOT/AST 20 IU/L (3-35); SGPT/ALT 38 U/L (12-78); SODIUM 139 mmol/L (136-145); TOTAL PROTEIN 7.3 gm/dL (6.4-8.2)
== END | disposition home or self-care (01) ==
LOC: LAB 11:11
PROVIDERS: ATTEND Hospitalist
DX: E11.9 Type 2 diabetes mellitus without complications (principal)

== ENCOUNTER → 2021-07-30 | Outpatient (CLI) | payer OTHER | END | disposition home or self-care (01) | LOC: RESCLI 00:13 | PROVIDERS: ATTEND Emergency Medicine | DX: I11.0 Hypertensive heart disease with heart failure (principal); F32.9 Major depressive disorder, single episode, unspecified; E78.5 Hyperlipidemia, unspecified; E11.9 Type 2 diabetes mellitus without complications; M54.31 Sciatica, right side; F41.9 Anxiety disorder, unspecified; F51.01 Primary insomnia; E11.42 Type 2 diabetes mellitus with diabetic polyneuropathy; I50.9 Heart failure, unspecified; E55.9 Vitamin D deficiency, unspecified; R60.0 Localized edema; K59.00 Constipation, unspecified; G89.29 Other chronic pain; J30.2 Other seasonal allergic rhinitis; E66.9 Obesity, unspecified; E53.8 Deficiency of other specified B group vitamins; Z90.710 Acquired absence of both cervix and uterus; Z98.890 Other specified postprocedural states; Z79.899 Other long term (current) drug therapy ==

== ENCOUNTER → 2021-11-12 | Outpatient (CLI) | payer OTHER ==
[2021-11-12 12:30] LABS: BASO % 0.7 % (0.0-1.0); EOS # 0.3 10*3/uL (0.0-0.4); EOS % 4.6 % (1.0-4.0); HEMATOCRIT 39.2 % (37.0-47.0); LYMPH # 1.5 10*3/uL (1.3-4.4); LYMPH % 25.7 % (27.0-41.0); MEAN CORPUSCULAR HGB 29.1 pg (27.0-31.0); MEAN CORPUSCULAR HGB CONC 31.6 g/dl (33.0-37.0); MEAN PLATELET VOLUME 9.4 fl (9.6-12.3); MONO # 0.3 10*3/uL (0.1-1.0); MONO % 5.6 % (3.0-9.0); NEUT # 3.6 10*3/uL (2.3-7.9); NEUT % 62.7 % (47.0-73.0); PLATELET COUNT AUTOMATED 254 10*3/uL (130-400); RED BLOOD COUNT 4.26 10*6/uL (4.10-5.10); RED CELL DISTRI WIDTH 14.6 % (0-14.5); WHITE BLOOD COUNT 5.7 10*3/uL (4.8-10.8)
[2021-11-12 12:48] LABS: BUN 14 mg/dl (7-24); CHLORIDE 110 mmol/L (98-107); CREATININE 0.88 mg/dL (0.55-1.02); SODIUM 142 mmol/L (136-145)
[2021-11-13 12:07] LABS: BRAIN NATRIURETIC PEPTIDE 157.1 pg/mL (0.0-100.0)
== END | disposition home or self-care (01) ==
LOC: RESCLI 12:08
PROVIDERS: Student in an Organized Health Care Education/Training Program; ATTEND Internal Medicine
DX: I11.0 Hypertensive heart disease with heart failure (principal); I25.10 Atherosclerotic heart disease of native coronary artery without angina pectoris; I50.9 Heart failure, unspecified; E66.9 Obesity, unspecified; E11.65 Type 2 diabetes mellitus with hyperglycemia; F33.9 Major depressive disorder, recurrent, unspecified; J30.2 Other seasonal allergic rhinitis; E55.9 Vitamin D deficiency, unspecified; E78.2 Mixed hyperlipidemia; F51.01 Primary insomnia; F41.9 Anxiety disorder, unspecified; M54.31 Sciatica, right side; E78.1 Pure hyperglyceridemia; F32.9 Major depressive disorder, single episode, unspecified; Z79.4 Long term (current) use of insulin; E11.42 Type 2 diabetes mellitus with diabetic polyneuropathy; Z90.710 Acquired absence of both cervix and uterus; Z79.01 Long term (current) use of anticoagulants; Z79.899 Other long term (current) drug therapy

== ENCOUNTER → 2021-11-12 | Outpatient (CLI) | payer OTHER | END | disposition home or self-care (01) | LOC: RESCLI 11-11 03:26 | PROVIDERS: ATTEND Internal Medicine | DX: I49.3 Ventricular premature depolarization (principal); I51.7 Cardiomegaly; I45.89 Other specified conduction disorders; I50.9 Heart failure, unspecified; R94.31 Abnormal electrocardiogram [ECG] [EKG] ==

== ENCOUNTER → 2021-11-19 | Outpatient (CLI) | payer OTHER | END | disposition home or self-care (01) | LOC: RESCLI 00:59 | PROVIDERS: ATTEND Internal Medicine | DX: I11.0 Hypertensive heart disease with heart failure (principal); E11.21 Type 2 diabetes mellitus with diabetic nephropathy; E78.5 Hyperlipidemia, unspecified; E78.1 Pure hyperglyceridemia; I50.9 Heart failure, unspecified; M54.31 Sciatica, right side; F41.9 Anxiety disorder, unspecified; Z79.4 Long term (current) use of insulin; I25.10 Atherosclerotic heart disease of native coronary artery without angina pectoris; E66.9 Obesity, unspecified; F33.9 Major depressive disorder, recurrent, unspecified; J30.2 Other seasonal allergic rhinitis; E55.9 Vitamin D deficiency, unspecified; F32.9 Major depressive disorder, single episode, unspecified; Z79.899 Other long term (current) drug therapy; Z90.710 Acquired absence of both cervix and uterus; Z79.82 Long term (current) use of aspirin ==

== ENCOUNTER → 2022-01-31 | Outpatient (CLI) | payer OTHER ==
[2022-01-31 12:00] LABS: BASO % 0.8 % (0.0-1.0); EOS # 0.3 10*3/uL (0.0-0.4); EOS % 6.7 % (1.0-4.0); HEMATOCRIT 40.1 % (37.0-47.0); LYMPH # 1.7 10*3/uL (1.3-4.4); LYMPH % 34.7 % (27.0-41.0); MEAN CELL VOLUME 93.5 fl (81.0-99.0); MEAN CORPUSCULAR HGB 29.4 pg (27.0-31.0); MEAN CORPUSCULAR HGB CONC 31.4 g/dl (33.0-37.0); MEAN PLATELET VOLUME 10.1 fl (9.6-12.3); MONO # 0.4 10*3/uL (0.1-1.0); MONO % 8.2 % (3.0-9.0); NEUT # 2.3 10*3/uL (2.3-7.9); NEUT % 49.2 % (47.0-73.0); PLATELET COUNT AUTOMATED 234 10*3/uL (130-400); RED BLOOD COUNT 4.29 10*6/uL (4.10-5.10); RED CELL DISTRI WIDTH 14.4 % (0-14.5); WHITE BLOOD COUNT 4.8 10*3/uL (4.8-10.8)
[2022-01-31 12:07] LABS: BILIRUBIN Negative (Negative); BLOOD Negative (Negative); CLARITY Clear (Clear); COLOR Yellow (Yellow); GLUCOSE Negative (Negative); KETONE Trace (Negative); LEUKO ESTERASE 1+ (Negative); NITRITE Negative (Negative); PH 6.5 (4.5-8.0)
[2022-01-31 12:15] LABS: BUN 14 mg/dl (7-24); CHLORIDE 107 mmol/L (98-107); CREATININE 0.92 mg/dL (0.55-1.02); IRON 76 ug/dL (50-170); POTASSIUM 4.1 mmol/L (3.5-5.1); SODIUM 140 mmol/L (136-145)
[2022-01-31 12:29] LABS: BACTERIA 1+; MUCOUS 1+
[2022-01-31 12:42] LABS: VITAMIN D, 25-HYDROXY 48.8 ng/mL (30-100)
[2022-01-31 13:28] LABS: FERRITIN 20.6 ng/mL (10.0-291.0)
== END | disposition home or self-care (01) ==
LOC: LAB 11:12
PROVIDERS: ATTEND Internal Medicine Nephrology
DX: N18.31 Chronic kidney disease, stage 3a (principal); D63.1 Anemia in chronic kidney disease; N25.81 Secondary hyperparathyroidism of renal origin; Z79.899 Other long term (current) drug therapy

== ENCOUNTER → 2022-02-07 | Outpatient (CLI) | payer OTHER | END | disposition home or self-care (01) | LOC: RESCLI 00:09 | PROVIDERS: ATTEND Internal Medicine | DX: Z23 Encounter for immunization (principal); I11.0 Hypertensive heart disease with heart failure; I50.9 Heart failure, unspecified; E78.5 Hyperlipidemia, unspecified; E78.1 Pure hyperglyceridemia; F41.9 Anxiety disorder, unspecified; F51.01 Primary insomnia; E11.42 Type 2 diabetes mellitus with diabetic polyneuropathy; E11.21 Type 2 diabetes mellitus with diabetic nephropathy; I25.10 Atherosclerotic heart disease of native coronary artery without angina pectoris; E66.9 Obesity, unspecified; E78.2 Mixed hyperlipidemia; E55.9 Vitamin D deficiency, unspecified; F33.9 Major depressive disorder, recurrent, unspecified; K92.89 Other specified diseases of the digestive system; M54.31 Sciatica, right side; Z68.30 Body mass index [BMI] 30.0-30.9, adult; Z79.899 Other long term (current) drug therapy ==

== ENCOUNTER → 2022-05-13 | Outpatient (CLI) | payer OTHER | END | disposition home or self-care (01) | LOC: RESCLI 02:53 | PROVIDERS: ATTEND Internal Medicine | DX: I11.0 Hypertensive heart disease with heart failure (principal); I50.9 Heart failure, unspecified; E78.5 Hyperlipidemia, unspecified; E78.1 Pure hyperglyceridemia; F41.9 Anxiety disorder, unspecified; M54.31 Sciatica, right side; F51.01 Primary insomnia; E11.42 Type 2 diabetes mellitus with diabetic polyneuropathy; E11.21 Type 2 diabetes mellitus with diabetic nephropathy; E55.9 Vitamin D deficiency, unspecified; R60.0 Localized edema; E11.65 Type 2 diabetes mellitus with hyperglycemia; K59.00 Constipation, unspecified; F33.9 Major depressive disorder, recurrent, unspecified; E66.9 Obesity, unspecified; K92.89 Other specified diseases of the digestive system; Z98.890 Other specified postprocedural states; Z90.710 Acquired absence of both cervix and uterus; Z79.82 Long term (current) use of aspirin; Z79.899 Other long term (current) drug therapy ==

== ENCOUNTER → 2022-07-01 | Outpatient (CLI) | payer OTHER | END | disposition home or self-care (01) | LOC: RESCLI 01:48 | PROVIDERS: ATTEND Family Medicine | DX: I11.0 Hypertensive heart disease with heart failure (principal); I50.20 Unspecified systolic (congestive) heart failure; E11.21 Type 2 diabetes mellitus with diabetic nephropathy; E53.8 Deficiency of other specified B group vitamins; E78.5 Hyperlipidemia, unspecified; M54.31 Sciatica, right side; F41.9 Anxiety disorder, unspecified; G89.29 Other chronic pain; K59.00 Constipation, unspecified; J30.2 Other seasonal allergic rhinitis; I25.10 Atherosclerotic heart disease of native coronary artery without angina pectoris; F33.9 Major depressive disorder, recurrent, unspecified; F51.01 Primary insomnia; E55.9 Vitamin D deficiency, unspecified; E11.42 Type 2 diabetes mellitus with diabetic polyneuropathy; Z98.890 Other specified postprocedural states; Z79.899 Other long term (current) drug therapy ==

== ENCOUNTER → 2022-08-05 | Outpatient (CLI) | payer OTHER ==
[2022-08-05 11:37] LABS: BASO # 0.1 10*3/uL (0.0-0.1); BASO % 1.2 % (0.0-1.0); EOS # 0.3 10*3/uL (0.0-0.4); EOS % 5.3 % (1.0-4.0); HEMATOCRIT 43.3 % (37.0-47.0); LYMPH # 1.7 10*3/uL (1.3-4.4); LYMPH % 32.7 % (27.0-41.0); MEAN CELL VOLUME 93.7 fl (81.0-99.0); MEAN CORPUSCULAR HGB 29.9 pg (27.0-31.0); MEAN CORPUSCULAR HGB CONC 31.9 g/dl (33.0-37.0); MEAN PLATELET VOLUME 10.2 fl (9.6-12.3); MONO # 0.4 10*3/uL (0.1-1.0); MONO % 7.3 % (3.0-9.0); NEUT # 2.7 10*3/uL (2.3-7.9); NEUT % 53.1 % (47.0-73.0); PLATELET COUNT AUTOMATED 266 10*3/uL (130-400); RED BLOOD COUNT 4.62 10*6/uL (4.10-5.10); RED CELL DISTRI WIDTH 14.8 % (0-14.5); WHITE BLOOD COUNT 5.1 10*3/uL (4.8-10.8)
[2022-08-05 12:32] LABS: POTASSIUM 3.8 mmol/L (3.4-5.1); TOTAL PROTEIN 7.6 gm/dL (6.0-8.0)
== END | disposition home or self-care (01) ==
LOC: RESCLI 00:39
PROVIDERS: Student in an Organized Health Care Education/Training Program; ATTEND Internal Medicine
DX: I11.0 Hypertensive heart disease with heart failure (principal); I50.20 Unspecified systolic (congestive) heart failure; E11.21 Type 2 diabetes mellitus with diabetic nephropathy; E78.5 Hyperlipidemia, unspecified; M54.31 Sciatica, right side; F51.01 Primary insomnia; E11.42 Type 2 diabetes mellitus with diabetic polyneuropathy; E55.9 Vitamin D deficiency, unspecified; E78.2 Mixed hyperlipidemia; I25.10 Atherosclerotic heart disease of native coronary artery without angina pectoris; E66.9 Obesity, unspecified; F33.9 Major depressive disorder, recurrent, unspecified; Z98.890 Other specified postprocedural states; Z79.899 Other long term (current) drug therapy

== ENCOUNTER → 2022-10-01 | Outpatient (CLI) | payer OTHER | END | disposition home or self-care (01) | LOC: RESCLI 01:48 | PROVIDERS: ATTEND Internal Medicine | DX: I11.0 Hypertensive heart disease with heart failure (principal); I50.20 Unspecified systolic (congestive) heart failure; E78.5 Hyperlipidemia, unspecified; E11.21 Type 2 diabetes mellitus with diabetic nephropathy; F51.01 Primary insomnia; F41.9 Anxiety disorder, unspecified; R60.0 Localized edema; K59.00 Constipation, unspecified; G89.29 Other chronic pain; E66.9 Obesity, unspecified; E11.42 Type 2 diabetes mellitus with diabetic polyneuropathy; Z98.890 Other specified postprocedural states; Z79.4 Long term (current) use of insulin; Z90.710 Acquired absence of both cervix and uterus; Z79.899 Other long term (current) drug therapy ==

== ENCOUNTER → 2022-12-03 | Outpatient (CLI) | payer OTHER ==
[2022-12-03 12:30] LABS: BASO % 0.9 % (0.0-1.0); EOS # 0.3 10*3/uL (0.0-0.4); EOS % 5.6 % (1.0-4.0); HEMATOCRIT 43.7 % (37.0-47.0); LYMPH # 1.2 10*3/uL (1.3-4.4); LYMPH % 27.1 % (27.0-41.0); MEAN CELL VOLUME 93.6 fl (81.0-99.0); MEAN CORPUSCULAR HGB 29.6 pg (27.0-31.0); MEAN CORPUSCULAR HGB CONC 31.6 g/dl (33.0-37.0); MEAN PLATELET VOLUME 10.3 fl (9.6-12.3); MONO # 0.3 10*3/uL (0.1-1.0); MONO % 6.3 % (3.0-9.0); NEUT # 2.7 10*3/uL (2.3-7.9); NEUT % 60.1 % (47.0-73.0); PLATELET COUNT AUTOMATED 212 10*3/uL (130-400); RED BLOOD COUNT 4.67 10*6/uL (4.10-5.10); RED CELL DISTRI WIDTH 14.4 % (0-14.5); WHITE BLOOD COUNT 4.5 10*3/uL (4.8-10.8)
[2022-12-03 12:40] LABS: URINE CREATININE RANDOM 14.49 mg/dL
[2022-12-03 12:53] LABS: POTASSIUM 3.9 mmol/L (3.4-5.1); TOTAL PROTEIN 7.5 gm/dL (6.0-8.0)
== END | disposition home or self-care (01) ==
LOC: LAB 11:46
PROVIDERS: Student in an Organized Health Care Education/Training Program; ATTEND Student in an Organized Health Care Education/Training Program
DX: E11.9 Type 2 diabetes mellitus without complications (principal); I10 Essential (primary) hypertension; E78.5 Hyperlipidemia, unspecified; Z79.4 Long term (current) use of insulin

== ENCOUNTER → 2022-12-24 | Outpatient (CLI) | payer MEDICARE | END | disposition home or self-care (01) | LOC: RESCLI 09:44 | PROVIDERS: ATTEND Internal Medicine | DX: I11.0 Hypertensive heart disease with heart failure (principal); I50.20 Unspecified systolic (congestive) heart failure; F32.9 Major depressive disorder, single episode, unspecified; M54.31 Sciatica, right side; E11.9 Type 2 diabetes mellitus without complications; E78.5 Hyperlipidemia, unspecified; F41.9 Anxiety disorder, unspecified; E55.9 Vitamin D deficiency, unspecified; G89.29 Other chronic pain; I25.10 Atherosclerotic heart disease of native coronary artery without angina pectoris; E11.21 Type 2 diabetes mellitus with diabetic nephropathy; B35.1 Tinea unguium; Z98.890 Other specified postprocedural states; Z79.899 Other long term (current) drug therapy ==

== ENCOUNTER → 2023-04-21 | Outpatient (CLI) | payer OTHER | END | disposition home or self-care (01) | LOC: RESCLI 14:51 | PROVIDERS: ATTEND Internal Medicine | DX: H66.90 Otitis media, unspecified, unspecified ear (principal); R05.9 Cough, unspecified; E11.21 Type 2 diabetes mellitus with diabetic nephropathy; F51.01 Primary insomnia; E78.5 Hyperlipidemia, unspecified; E55.9 Vitamin D deficiency, unspecified; I11.0 Hypertensive heart disease with heart failure; I50.20 Unspecified systolic (congestive) heart failure; B35.1 Tinea unguium; K59.00 Constipation, unspecified; E11.42 Type 2 diabetes mellitus with diabetic polyneuropathy; R06.02 Shortness of breath; Z98.890 Other specified postprocedural states; Z90.710 Acquired absence of both cervix and uterus; Z79.899 Other long term (current) drug therapy ==

== ENCOUNTER 2023-04-27 15:53 | Emergency (ER) | payer OTHER ==
[~2023-04-27] VITALS: Ht 170.1 cm; Wt 113.4 kg
[2023-04-27 16:09] VITALS: BP 127/83
[2023-04-27 17:06] LABS: BASO # 0.1 10*3/uL (0.0-0.1); BASO % 0.7 % (0.0-1.0); EOS # 0.3 10*3/uL (0.0-0.4); EOS % 3.7 % (1.0-4.0); HEMATOCRIT 43.7 % (37.0-47.0); LYMPH # 1.8 10*3/uL (1.3-4.4); LYMPH % 21.5 % (27.0-41.0); MEAN CELL VOLUME 92.4 fl (81.0-99.0); MEAN CORPUSCULAR HGB 29.6 pg (27.0-31.0); MEAN PLATELET VOLUME 9.8 fl (9.6-12.3); MONO # 0.5 10*3/uL (0.1-1.0); MONO % 5.6 % (3.0-9.0); NEUT # 5.6 10*3/uL (2.3-7.9); NEUT % 67.7 % (47.0-73.0); PLATELET COUNT AUTOMATED 319 10*3/uL (130-400); RED BLOOD COUNT 4.73 10*6/uL (4.10-5.10); RED CELL DISTRI WIDTH 13.9 % (0-14.5); WHITE BLOOD COUNT 8.3 10*3/uL (4.8-10.8)
[2023-04-27 17:17] LABS: ACT PARTIAL THROMBO TIME 22.3 SECONDS (20.0-32.1)
[2023-04-27 17:32] LABS: POTASSIUM 3.3 mmol/L (3.4-5.1); TOTAL PROTEIN 7.6 gm/dL (6.0-8.0)
== END 2023-04-27 18:36 | disposition home or self-care (01) ==
LOC: ED 15:53
PROVIDERS: Emergency Medicine
DX: J06.9 Acute upper respiratory infection, unspecified (principal); Z20.822 Contact with and (suspected) exposure to COVID-19; I11.0 Hypertensive heart disease with heart failure; E11.9 Type 2 diabetes mellitus without complications; I50.9 Heart failure, unspecified; Z90.89 Acquired absence of other organs; Z90.710 Acquired absence of both cervix and uterus; Z98.890 Other specified postprocedural states

== ENCOUNTER → 2023-05-07 | Outpatient (CLI) | payer MEDICARE | END | disposition home or self-care (01) | LOC: RESCLI 14:42 | PROVIDERS: ATTEND Internal Medicine | DX: H66.90 Otitis media, unspecified, unspecified ear (principal); F51.01 Primary insomnia; I11.0 Hypertensive heart disease with heart failure; I50.9 Heart failure, unspecified; Z88.8 Allergy status to other drugs, medicaments and biological substances; Z98.890 Other specified postprocedural states; Z90.710 Acquired absence of both cervix and uterus; Z79.899 Other long term (current) drug therapy ==

== ENCOUNTER → 2023-06-29 | Outpatient (CLI) | payer MEDICARE ==
[2023-06-29 13:41] LABS: BILIRUBIN Negative (Negative); BLOOD Negative (Negative); CLARITY Cloudy (Clear); COLOR Yellow (Yellow); GLUCOSE 3+ (Negative); KETONE Negative (Negative); LEUKO ESTERASE 2+ (Negative); NITRITE Negative (Negative); PH 6.5 (4.5-8.0); UROBILINOGEN 0.2 E.U./dl (0.0-1.0)
[2023-06-29 13:50] LABS: BACTERIA 1+; EPITHELIAL CELLS 21-30; URINE CREATININE RANDOM 24.14 mg/dL; WBC 41-50 wbc/hpf (0-5)
== END | disposition home or self-care (01) ==
LOC: LAB 13:07
PROVIDERS: Internal Medicine; ATTEND Internal Medicine
DX: E11.21 Type 2 diabetes mellitus with diabetic nephropathy (principal); E78.5 Hyperlipidemia, unspecified

== ENCOUNTER → 2023-07-01 | Outpatient (CLI) | payer MEDICARE | END | disposition home or self-care (01) | LOC: RESCLI 01:29 | PROVIDERS: ATTEND Internal Medicine | DX: I13.0 Hypertensive heart and chronic kidney disease with heart failure and stage 1 through stage 4 chronic kidney disease, or unspecified chronic kidney disease (principal); E11.22 Type 2 diabetes mellitus with diabetic chronic kidney disease; E11.21 Type 2 diabetes mellitus with diabetic nephropathy; E11.42 Type 2 diabetes mellitus with diabetic polyneuropathy; I50.20 Unspecified systolic (congestive) heart failure; N18.32 Chronic kidney disease, stage 3b; M54.31 Sciatica, right side; F51.01 Primary insomnia; E55.9 Vitamin D deficiency, unspecified; R60.0 Localized edema; E78.2 Mixed hyperlipidemia; G89.29 Other chronic pain; J30.2 Other seasonal allergic rhinitis; I25.10 Atherosclerotic heart disease of native coronary artery without angina pectoris; E66.9 Obesity, unspecified; E78.1 Pure hyperglyceridemia; G47.00 Insomnia, unspecified; G62.9 Polyneuropathy, unspecified; H66.90 Otitis media, unspecified, unspecified ear; E53.8 Deficiency of other specified B group vitamins; F32.9 Major depressive disorder, single episode, unspecified; B35.1 Tinea unguium; K59.00 Constipation, unspecified; F41.9 Anxiety disorder, unspecified; E78.5 Hyperlipidemia, unspecified; R06.02 Shortness of breath; Z98.890 Other specified postprocedural states; Z88.8 Allergy status to other drugs, medicaments and biological substances; Z79.899 Other long term (current) drug therapy; Z79.4 Long term (current) use of insulin ==

== ENCOUNTER → 2023-12-23 | Outpatient (CLI) | payer MEDICARE | END | disposition home or self-care (01) | LOC: RESCLI 00:57 | PROVIDERS: ATTEND Internal Medicine | DX: G47.00 Insomnia, unspecified (principal); E11.9 Type 2 diabetes mellitus without complications; F41.9 Anxiety disorder, unspecified; F32.9 Major depressive disorder, single episode, unspecified; E78.5 Hyperlipidemia, unspecified; I50.20 Unspecified systolic (congestive) heart failure; E55.9 Vitamin D deficiency, unspecified; E11.42 Type 2 diabetes mellitus with diabetic polyneuropathy; K59.00 Constipation, unspecified; G62.9 Polyneuropathy, unspecified; M54.30 Sciatica, unspecified side; E53.8 Deficiency of other specified B group vitamins; R06.02 Shortness of breath; R05.9 Cough, unspecified; R14.0 Abdominal distension (gaseous); B35.1 Tinea unguium; T78.40XA Allergy, unspecified, initial encounter; Z79.899 Other long term (current) drug therapy; Z98.890 Other specified postprocedural states; Z88.8 Allergy status to other drugs, medicaments and biological substances ==

== ENCOUNTER → 2023-12-31 | Outpatient (CLI) | payer MEDICARE ==
[2023-12-31 15:55] LABS: BASO % 0.5 % (0.0-1.0); EOS # 0.3 10*3/uL (0.0-0.4); EOS % 4.2 % (1.0-4.0); HEMATOCRIT 43.7 % (37.0-47.0); LYMPH # 1.7 10*3/uL (1.3-4.4); LYMPH % 25.7 % (27.0-41.0); MEAN CELL VOLUME 95.6 fl (81.0-99.0); MEAN CORPUSCULAR HGB 31.1 pg (27.0-31.0); MEAN CORPUSCULAR HGB CONC 32.5 g/dl (33.0-37.0); MEAN PLATELET VOLUME 9.9 fl (9.6-12.3); MONO # 0.4 10*3/uL (0.1-1.0); MONO % 6.2 % (3.0-9.0); NEUT # 4.1 10*3/uL (2.3-7.9); NEUT % 63.1 % (47.0-73.0); PLATELET COUNT AUTOMATED 224 10*3/uL (130-400); RED BLOOD COUNT 4.57 10*6/uL (4.10-5.10); WHITE BLOOD COUNT 6.5 10*3/uL (4.8-10.8)
[2023-12-31 16:04] LABS: URINE CREATININE RANDOM 99.15 mg/dL
[2023-12-31 16:23] LABS: POTASSIUM 3.8 mmol/L (3.4-5.1); TOTAL PROTEIN 7.5 gm/dL (6.0-8.0)
[2023-12-31 16:25] LABS: VITAMIN D, 25-HYDROXY 59.8 ng/mL (30-100)
== END | disposition home or self-care (01) ==
LOC: LAB 15:23
DX: E11.9 Type 2 diabetes mellitus without complications (principal); E55.9 Vitamin D deficiency, unspecified

== ENCOUNTER → 2024-02-10 | Outpatient (CLI) | payer OTHER | END | disposition home or self-care (01) | LOC: RESCLI 04:22 | PROVIDERS: ATTEND Internal Medicine | DX: I13.0 Hypertensive heart and chronic kidney disease with heart failure and stage 1 through stage 4 chronic kidney disease, or unspecified chronic kidney disease (principal); I50.9 Heart failure, unspecified; N18.30 Chronic kidney disease, stage 3 unspecified; R60.0 Localized edema; E78.5 Hyperlipidemia, unspecified; E11.9 Type 2 diabetes mellitus without complications; M54.31 Sciatica, right side; F41.9 Anxiety disorder, unspecified; F51.01 Primary insomnia; E55.9 Vitamin D deficiency, unspecified; K59.00 Constipation, unspecified; E66.9 Obesity, unspecified; I25.10 Atherosclerotic heart disease of native coronary artery without angina pectoris; G62.9 Polyneuropathy, unspecified; F32.9 Major depressive disorder, single episode, unspecified; G47.00 Insomnia, unspecified; M54.30 Sciatica, unspecified side; E53.8 Deficiency of other specified B group vitamins; Z79.899 Other long term (current) drug therapy; Z98.890 Other specified postprocedural states; Z88.8 Allergy status to other drugs, medicaments and biological substances ==

== ENCOUNTER → 2024-06-09 | Outpatient (CLI) | payer MEDICARE ==
[2024-06-09 13:43] LABS: BILIRUBIN Negative (Negative); BLOOD Negative (Negative); CLARITY Clear (Clear); COLOR Yellow (Yellow); GLUCOSE 3+ (Negative); KETONE Negative (Negative); LEUKO ESTERASE 1+ (Negative); NITRITE Negative (Negative)
[2024-06-09 13:54] LABS: BACTERIA 1+
[2024-06-09 14:14] LABS: POTASSIUM 2.8 mmol/L (3.4-5.1)
[2024-06-09 14:16] LABS: VITAMIN D, 25-HYDROXY 70.6 ng/mL (30-100)
== END | disposition home or self-care (01) ==
LOC: LAB 13:02
PROVIDERS: ATTEND Internal Medicine
DX: E11.9 Type 2 diabetes mellitus without complications (principal); G62.9 Polyneuropathy, unspecified; E04.9 Nontoxic goiter, unspecified; E55.9 Vitamin D deficiency, unspecified

== ENCOUNTER → 2024-08-03 | Outpatient (CLI) | payer MEDICARE | END | disposition home or self-care (01) | LOC: RESCLI 01:17 | PROVIDERS: ATTEND Internal Medicine | DX: I10 Essential (primary) hypertension (principal); F32.9 Major depressive disorder, single episode, unspecified; E78.5 Hyperlipidemia, unspecified; E11.9 Type 2 diabetes mellitus without complications; M54.31 Sciatica, right side; F41.9 Anxiety disorder, unspecified; F51.01 Primary insomnia; G47.00 Insomnia, unspecified; I25.10 Atherosclerotic heart disease of native coronary artery without angina pectoris; I50.20 Unspecified systolic (congestive) heart failure; K59.00 Constipation, unspecified; E55.9 Vitamin D deficiency, unspecified; E11.42 Type 2 diabetes mellitus with diabetic polyneuropathy; Z79.4 Long term (current) use of insulin ==

== ENCOUNTER → 2024-10-03 | Outpatient (CLI) | payer MEDICARE ==
[2024-10-03 15:15] LABS: BILIRUBIN Negative (Negative); BLOOD Negative (Negative); CLARITY Clear (Clear); COLOR Yellow (Yellow); KETONE Negative (Negative); LEUKO ESTERASE 1+ (Negative); NITRITE Negative (Negative); PH 5.5 (4.5-8.0); SPECIFIC GRAVITY 1.015 (1.001-1.030); UROBILINOGEN 0.2 E.U./dl (0.0-1.0)
[2024-10-03 15:39] LABS: BACTERIA 1+; RBC 0-2 rbc/hpf (0-2)
[2024-10-03 16:01] LABS: VITAMIN D, 25-HYDROXY 69.5 ng/mL (30-100)
[2024-10-03 16:02] LABS: BUN 20.0 mg/dl (9-23)
== END ==
LOC: LAB 14:41
PROVIDERS: ATTEND Internal Medicine
DX: E11.9 Type 2 diabetes mellitus without complications (principal); E04.9 Nontoxic goiter, unspecified; G62.9 Polyneuropathy, unspecified; E55.9 Vitamin D deficiency, unspecified

== ENCOUNTER → 2024-11-08 | Outpatient (CLI) | payer MEDICARE | END | disposition home or self-care (01) | LOC: RESCLI 01:01 | PROVIDERS: ATTEND Internal Medicine | DX: G47.00 Insomnia, unspecified (principal); I50.20 Unspecified systolic (congestive) heart failure; E11.9 Type 2 diabetes mellitus without complications; E78.5 Hyperlipidemia, unspecified; K59.00 Constipation, unspecified; E55.9 Vitamin D deficiency, unspecified; M54.31 Sciatica, right side; I25.10 Atherosclerotic heart disease of native coronary artery without angina pectoris ==

== ENCOUNTER → 2025-01-31 | Outpatient (CLI) | payer MEDICARE ==
[2025-01-31 13:03] LABS: BILIRUBIN Negative (Negative); BLOOD Trace-Lysed (Negative); CLARITY Clear (Clear); COLOR Yellow (Yellow); KETONE Negative (Negative); LEUKO ESTERASE 2+ (Negative); NITRITE Negative (Negative); PH 6.0 (4.5-8.0); SPECIFIC GRAVITY 1.015 (1.001-1.030); UROBILINOGEN 1.0 E.U./dl (0.0-1.0)
[2025-01-31 13:14] LABS: HYALINE CAST 31-40
[2025-01-31 13:15] LABS: BACTERIA 3+
[2025-01-31 13:35] LABS: BUN 19.0 mg/dl (9-23)
[2025-01-31 13:36] LABS: VITAMIN D, 25-HYDROXY 62.0 ng/mL (30-100)
== END | disposition home or self-care (01) ==
LOC: LAB 00:48
PROVIDERS: ATTEND Internal Medicine
DX: E11.9 Type 2 diabetes mellitus without complications (principal); E04.8 Other specified nontoxic goiter; E55.9 Vitamin D deficiency, unspecified; G62.9 Polyneuropathy, unspecified

== ENCOUNTER → 2025-03-21 | Outpatient (CLI) | payer MEDICARE | END | disposition home or self-care (01) | LOC: RESCLI 01:34 | PROVIDERS: ATTEND Internal Medicine | DX: G47.00 Insomnia, unspecified (principal); I11.0 Hypertensive heart disease with heart failure; I50.20 Unspecified systolic (congestive) heart failure; E11.9 Type 2 diabetes mellitus without complications; E55.9 Vitamin D deficiency, unspecified; E78.5 Hyperlipidemia, unspecified; M54.31 Sciatica, right side; K59.00 Constipation, unspecified; I25.10 Atherosclerotic heart disease of native coronary artery without angina pectoris; Z79.899 Other long term (current) drug therapy; Z98.890 Other specified postprocedural states; Z88.8 Allergy status to other drugs, medicaments and biological substances ==